=== PATIENT | male | born 1995 | race African-American/Black ===

== ENCOUNTER 2018-01-17 19:37 | Emergency (ER) | payer SELFPAY ==
[2018-01-17] MEDS ORDERED: NA CHLORIDE 0.9% 1,000 ML ONE (20:18)
[2018-01-17] MEDS ORDERED: ONDANSETRON 4 MG/2 ML VIAL ONE (20:18)
[2018-01-17 20:26] LABS: Absolute Lymphocytes (CBC) 0.3 K/uL (0.7-4.9); Absolute Monocytes 0.4 K/uL (0.1-1.3); Absolute Neutrophil 5.2 K/uL (1.8-8.0); Basophils % 0.1 % (0-1.3); Eosinophils % 0.8 % (0-4.4); Hematocrit 47.2 % (39.6-49.0); Lymphocytes % 5.7 % (15.3-44.8); MCH 30.3 pg (27.0-35.0); MCV 88.3 fL (80-100); MPV 7.4 fL (7.6-11.3); Monocytes % 6.5 % (3.3-12.3); RBC Red Blood Cell Count 5.35 M/uL (4.33-5.43)
[2018-01-17 20:37] LABS: Bicarbonate 28 mEq/L (21-31); Glucose Level 106 mg/dL (65-120); Lipase 22 U/L (22-51); Potassium 3.8 mEq/L (3.6-5.0); Sodium Level 140 mEq/L (135-145)
[2018-01-17 20:44] LABS: ALT/SGPT 21 IU/L (10-60); AST/SGOT 25 IU/L (10-42); Albumin 5.1 g/dL (3.2-5.5); Alkaline Phosphatase 58 IU/L (42-121); BUN Blood Urea Nitrogen 14 mg/dL (6-20); Bilirubin Direct 0.2 mg/dL (0-0.2); Bilirubin Total 1.8 mg/dL (0.3-1.2); Protein, Total 8.3 g/dL (6.0-8.3)
[2018-01-17 21:12] LABS: Blood Morphology Comment NOT SEEN (NOT SEEN); Platelet Estimate ADEQ; Urine White Blood Cell Casts OK
[2018-01-17 21:27] LABS: Urine Blood NEGATIVE (NEG); Urine Glucose NEGATIVE (NEG); Urine Protein 1+ (NEG); Urine Specific Gravity >1.030 (1.005-1.030); Urine pH 5.5 (5.0-7.0)
--- NOTE | 2018-01-17 21:47 | ER ---
Nurse's Notes [facility] Name: Anna Mcclellan III Age: 22 yrs Sex: Male : 1995 Arrival Date: 01/17/2018 Time: 19:43 Bed 27 Private MD: Diagnosis: Vomiting;Diarrhea, unspecified Presentation: 01/17 20:03 Presenting complaint: Patient states: Pt. c/o N/V/D with abd pain that radiates into rk2 back. Onset this morning. Denies any PMHx. Transition of care: patient was not received from another setting of care. Onset of symptoms was January 17, 2018. Risk Assessment: Do you want to hurt yourself or someone else? Patient reports no desire to harm self or others. Initial Sepsis Screen: Does the patient meet any 2 criteria? No. Patient's initial sepsis screen is negative. Does the patient have a suspected source of infection? No. Patient's initial sepsis screen is negative. Care prior to arrival: None. 20:03 Method Of Arrival: Ambulatory rk2 20:03 Acuity: SHAHEEN 3 rk2 Triage Assessment: 20:05 General: Appears in no apparent distress. slender, well groomed, well developed, well rk2 nourished, Behavior is calm, cooperative. Pain: Complains of pain in abdomen. Neuro: Level of Consciousness is alert, obeys commands, Oriented to person, place, time, situation. Respiratory: Airway is patent Respiratory effort is even, unlabored, Respiratory pattern is regular, symmetrical. GI: Reports lower abdominal pain, upper abdominal pain, diarrhea, nausea, vomiting. Derm: Skin is pink, warm \T\ dry. Historical: - Allergies: 20:05 No Known Allergies; rk2 - Home Meds: 20:05 None [Active]; rk2 - PMHx: 20:05 None; rk2 - Immunization history:: Flu vaccine is up to date. - Social history:: Smoking status: Patient uses tobacco products, smokes one-half pack cigarettes per day. - Ebola Screening: : Patient negative for fever greater than or equal to 101.5 degrees Fahrenheit, and additional compatible Ebola Virus Disease symptoms. Screenin:07 Abuse screen: Denies threats or abuse. Nutritional screening: No deficits noted. rk2 Tuberculosis screening: No symptoms or risk factors identified. Fall Risk None identified. Vital Signs: 20:04 BP 119 / 93; Pulse 88; Resp 17; Temp 99.4; Pulse Ox 100% on R/A; rk2 21:53 BP 115 / 90; Pulse 86; Resp 17; Pulse Ox 100% on R/A; kr2 ED Course: 19:43 Patient arrived in ED. al2 19:50 Samuel Carrasquillo NP is PHCP. pm1 19:50 Elise Marshall MD is Attending Physician. pm1 19:53 Julianna Sánchez, KRIS is Primary Nurse. rk2 20:04 Triage completed. rk2 20:07 Patient has correct armband on for positive identification. Bed in low position. Call rk2 light in reach. 20:10 Arm band placed on. kr2 20:22 Basic Metabolic Panel Sent. rk2 20:22 CBC with Diff Sent. rk2 21:54 No provider procedures requiring assistance completed. IV discontinued, intact, kr2 bleeding controlled, No redness/swelling at site. Pressure dressing applied. Administered Medications: 20:21 Drug: Zofran 4 mg Route: IVP; Site: right antecubital; rk2 21:38 Follow up: Response: No adverse reaction rk2 20:22 Drug: NS 0.9% 1000 ml Route: IV; Rate: 1000 ml; Site: right antecubital; rk2 21:38 Follow up: Response: No adverse reaction; IV Status: Completed infusion rk2 21:39 Follow up: Response: No adverse reaction; IV Status: Completed infusion rk2 Outcome: 21:46 Discharge ordered by MD. pm1 21:54 Discharged to home ambulatory, with family. kr2 21:54 Condition: good 21:54 Discharge instructions given to patient, family, Instructed on discharge instructions, follow up and referral plans. medication usage, Demonstrated understanding of instructions, follow-up care, medications, Prescriptions given X 1. 21:55 Patient left the ED. kr2 Signatures: Samuel Carrasquillo NP [employer] pm1 Iliana Oropeza RN RN kr2 Barbra Hinkle al2 Julianna Sánchez RN RN rk2
--- NOTE | 2018-01-17 21:47 | EDPHYS ---
Physician Documentation [facility] Name: Anna Mcclellan III Age: 22 yrs Sex: Male : 1995 Arrival Date: 01/17/2018 Time: 19:43 Bed 27 Private MD: ED Physician Elise Marshall HPI: 01/17 21:00 This 22 yrs old Black Male presents to ER via Ambulatory with complaints of Abdominal pm1 pain, vomiting, diarrhea. 21:00 The patient presents to the emergency department with vomiting, 2 times since the onset pm1 of symptoms, diarrhea, 4 times since the onset of symptoms, abdominal pain, described as crampy, with diarrhea. Onset: The symptoms/episode began/occurred this morning. Possible causes: unknown. The symptoms are aggravated by nothing. The symptoms are alleviated by nothing. Associated signs and symptoms: Pertinent negatives: dysuria, fever. Severity of symptoms: in the emergency department the symptoms have improved Pain is currently a 0 / 10. The patient has not recently seen a physician. Patient presenting to the ER with vomiting and diarrhea. Patient reports abdominal cramping with diarrhea. Patient currently without any pain. No fevers. Historical: - Allergies: 20:05 No Known Allergies; rk2 - Home Meds: 20:05 None [Active]; rk2 - PMHx: 20:05 None; rk2 - Immunization history:: Flu vaccine is up to date. - Social history:: Smoking status: Patient uses tobacco products, smokes one-half pack cigarettes per day. - Ebola Screening: : Patient negative for fever greater than or equal to 101.5 degrees Fahrenheit, and additional compatible Ebola Virus Disease symptoms. ROS: 21:00 Constitutional: Negative for fever, chills, and weight loss, Eyes: Negative for injury, pm1 pain, redness, and discharge, ENT: Negative for injury, pain, and discharge, Neck: Negative for injury, pain, and swelling, Cardiovascular: Negative for chest pain, palpitations, and edema, Respiratory: Negative for shortness of breath, cough, wheezing, and pleuritic chest pain. 21:00 Back: Negative for injury and pain, : Negative for injury, bleeding, discharge, and swelling, MS/Extremity: Negative for injury and deformity, Skin: Negative for injury, rash, and discoloration, Neuro: Negative for headache, weakness, numbness, tingling, and seizure. 21:00 Abdomen/GI: Positive for nausea, vomiting, diarrhea, abdominal cramps, Negative for hematemesis, black/tarry stool, rectal pain, rectal bleeding. Exam: 21:00 Head/Face: Normocephalic, atraumatic. Neck: Trachea midline, no thyromegaly or masses pm1 palpated, and no cervical lymphadenopathy. Supple, full range of motion without nuchal rigidity, or vertebral point tenderness. No Meningismus. Chest/axilla: Normal chest wall appearance and motion. Nontender with no deformity. No lesions are appreciated. Cardiovascular: Regular rate and rhythm with a normal S1 and S2. No gallops, murmurs, or rubs. Normal PMI, no JVD. No pulse deficits. Respiratory: Lungs have equal breath sounds bilaterally, clear to auscultation and percussion. No rales, rhonchi or wheezes noted. No increased work of breathing, no retractions or nasal flaring. 21:00 Back: No spinal tenderness. No costovertebral tenderness. Full range of motion. Skin: Warm, dry with normal turgor. Normal color with no rashes, no lesions, and no evidence of cellulitis. MS/ Extremity: Pulses equal, no cyanosis. Neurovascular intact. Full, normal range of motion. 21:00 Constitutional: The patient appears in no acute distress, alert, awake, comfortable, non-diaphoretic, non-toxic, well developed, well hydrated, well groomed, well nourished. 21:00 Abdomen/GI: Inspection: abdomen appears normal, Bowel sounds: normal, in all quadrants, Palpation: abdomen is soft and non-tender, in all quadrants, mass, is not appreciated, rebound tenderness, is not appreciated, Indicators: McBurney's point is not tender, Estevez's sign is negative, Rovsing's sign is negative, Obturator sign is negative, Psoas sign is negative. 21:00 Neuro: Orientation: is normal, Motor: is normal, moves all fours. Vital Signs: 20:04 BP 119 / 93; Pulse 88; Resp 17; Temp 99.4; Pulse Ox 100% on R/A; rk2 21:53 BP 115 / 90; Pulse 86; Resp 17; Pulse Ox 100% on R/A; kr2 MDM: 19:50 Patient medically screened. pm1 21:45 Data reviewed: vital signs. Data interpreted: Pulse oximetry: on room air is 100 %. pm1 Interpretation: normal. Counseling: I had a detailed discussion with the patient and/or guardian regarding: the historical points, exam findings, and any diagnostic results supporting the discharge/admit diagnosis, lab results, the need for outpatient follow up, to return to the emergency department if symptoms worsen or persist or if there are any questions or concerns that arise at home. 21:50 Differential diagnosis: Nonspecific abd pain, gastritis, pancreatitis, appendicitis, pm1 diverticulitis, viral gastroenteritis. ED course: Patient comfortable with any abdominal pain on initial evaluation and reexamination prior to discharge. No nausea or vomiting during ER visit. Non-toxic appearance. Patient discharged home with antiemetic. 01/17 20:12 Order name: Basic Metabolic Panel pm1 01/17 20:12 Order name: CBC with Diff pm1 01/17 20:12 Order name: Hepatic Function; Complete Time: 21:44 pm1 01/17 20:12 Order name: Lipase; Complete Time: 21:44 pm1 01/17 20:12 Order name: Basic Metabolic Panel; Complete Time: 21:44 EDMS 01/17 20:12 Order name: CBC with Automated Diff; Complete Time: 21:44 EDMS 01/17 20:12 Order name: IV Saline Lock; Complete Time: 20:22 pm1 01/17 20:12 Order name: Labs collected and sent; Complete Time: 20:22 pm1 01/17 20:12 Order name: Urine Dipstick-Ancillary (obtain specimen); Complete Time: 21:16 pm1 01/17 20:39 Order name: CBC Smear Scan; Complete Time: 21:44 EDMS 01/17 21:22 Order name: Urine Dipstick--Ancillary (enter results); Complete Time: 21:44 rg2 Administered Medications: 20:21 Drug: Zofran 4 mg Route: IVP; Site: right antecubital; rk2 21:38 Follow up: Response: No adverse reaction rk2 20:22 Drug: NS 0.9% 1000 ml Route: IV; Rate: 1000 ml; Site: right antecubital; rk2 21:38 Follow up: Response: No adverse reaction; IV Status: Completed infusion rk2 21:39 Follow up: Response: No adverse reaction; IV Status: Completed infusion rk2 Disposition: 01/17/18 21:46 Discharged to Home. Impression: Vomiting, Diarrhea, unspecified. - Condition is Stable. - Discharge Instructions: Food Choices to Help Relieve Diarrhea, Adult, Diarrhea, Nausea and Vomiting, Viral Gastroenteritis. - Prescriptions for Zofran 4 mg Oral Tablet - take 1 tablet by ORAL route every 12 hours As needed; 20 tablet. - Medication Reconciliation Form, Thank You Letter form. - Follow up: Emergency Department; When: As needed; Reason: Worsening of condition. Follow up: Private Physician; When: 2 - 3 days; Reason: Recheck today's complaints, Continuance of care, Re-evaluation by your physician. - Problem is new. - Symptoms have improved. Addendum: 03/07/2018 07:24 Co-signature as Attending Physician, Elise Marshall MD. m a2 Signatures: Dispatcher [employer] EDMS Samuel Carrasquillo NP [employer]PERVIS[employer] pm1 Iliana Oropeza RN RN kr2 Elise Marshall MD MD ma2 Julianna Sánchez RN RN rk2 Corrections: (The following items were deleted from the chart) 01/17 21:55 21:46 01/17/2018 21:46 Discharged to Home. Impression: Vomiting; Diarrhea, unspecified. kr2 Condition is Stable. Forms are Medication Reconciliation Form, Thank You Letter, Antibiotic Education, Prescription Opioid Use. Follow up: Emergency Department; When: As needed; Reason: Worsening of condition. Follow up: Private Physician; When: 2 - 3 days; Reason: Recheck today's complaints, Continuance of care, Re-evaluation by your physician. Problem is new. Symptoms have improved. pm1
== END 2018-01-17 21:55 | disposition home or self-care (01) ==
LOC: ER 19:37
DX: R11.10 Vomiting, unspecified (principal); R19.7 Diarrhea, unspecified; F17.210 Nicotine dependence, cigarettes, uncomplicated
CPT/HCPCS: 36415; 80048; 80076; 81003; 83690; 85025; 96361; 96374; 99283; J2405; J7030